=== PATIENT | male | born 1990 | race American Indian/Alaskan Native ===

== ENCOUNTER 2018-08-25 22:27 | Emergency (ER) | payer OTHER ==
[~2018-08-25] VITALS: Ht 182.9 cm; Wt 74.8 kg
[~2018-08-25 22:27] MED LIST: ALBU90OI INH; ANTIPSYCHOTIC; AZIT250 PO; CEPH500 PO; CODGUAEL PO; DIPH50 PO; DOXY100 PO; HYDACE5 PO; HYDGUAL120 PO; IBUP600 PO; NYSTRI30T TOP; OXYACE5T PO; PALI3TAB PO; PSEU120ER PO; SULTRIDS PO
[2018-08-25 22:50] LABS: Source, Urine Catheter
[2018-08-25 22:53] LABS: BASOPHILS ABSOLUTE AUTO 0.07 K/mm3 (0.00-0.23); BASOPHILS PERCENT AUTO 1 % (0-2); EOSINOPHILS ABSOLUTE AUTO 0.11 K/mm3 (0.00-0.68); EOSINOPHILS PERCENT AUTO 2 % (0-6); Hematocrit 50.7 % (37.0-53.0); Hemoglobin 16.2 g/dL (13.5-17.5); IMMATURE GRAN ABSOLUTE AUTO 0.21 K/mm3 (0.00-0.10); IMMATURE GRAN PERCENT AUTO 3 % (0-1); LYMPHOCYTES ABSOLUTE AUTO 1.64 K/mm3 (0.84-5.20); LYMPHOCYTES PERCENT AUTO 22 % (21-46); MONOCYTES ABSOLUTE AUTO 0.54 K/mm3 (0.16-1.47); MONOCYTES PERCENT AUTO 7 % (4-13); Mean Corpuscular HGB 29.9 pg (26.0-34.0); Mean Corpuscular Volume 94 fL (80-100); Mean Platelet Volume 10.6 fL (9.1-12.4); NEUTROPHILS ABSOLUTE AUTO 4.83 K/mm3 (1.96-9.15); NEUTROPHILS PERCENT AUTO 65 % (41-73); Platelet Count 279 K/mm3 (150-400); RDW Coefficient Variation 12.1 % (11.7-14.2); Red Blood Cell Count 5.41 M/mm3 (4.30-5.90)
[2018-08-25 22:57] LABS: Bilirubin, Urine Neg (Neg); Blood, Urine 3+ (Neg); Glucose Qualitative, Urine Neg (Neg); Ketones, Urine 1+ (Neg); Leukocyte Esterase, Urine 1+ (Neg); Nitrite, Urine Neg (Neg); Protein, Urine 3+ (Neg); Specific Gravity, Urine 1.025 (1.003-1.022); Urobilinogen, Urine 1+ (Normal)
[2018-08-25 22:58] LABS: Appearance, Urine Cloudy (Clear); Color, Urine Yellow (P-Yellow)
[2018-08-25 23:06] LABS: U Amphetamine Screen DETECTED; U Barbituate Screen Not Detected; U Benzodiazapine Screen Not Detected; U Buprenorphine Screen Not Detected; U Cannabinoids Screen DETECTED; U Cocaine Screen Not Detected; U Methadone Screen Not Detected; U Methamphetamine Screen DETECTED; U Opiates Screen Not Detected; U Oxycodone Screen Not Detected; U Phencyclidine Screen Not Detected; U Propoxyphene Screen Not Detected
[2018-08-25 23:07] LABS: Bacteria Few /hpf; Squamous Epithelial Cells Rare /hpf (Few)
[2018-08-25 23:08] LABS: Spermatozoa Many /hpf
[2018-08-25 23:10] LABS: International Normalized Ratio 1.05; Prothrombin Time Results 11.1 Sec (9.7-11.5)
[2018-08-25 23:12] LABS: Alanine Aminotransfer (ALT/SGP 47 U/L (12-78); Albumin, Blood 4.4 g/dL (3.4-5.0); Albumin/Globulin Ratio 1.2 (0.8-1.8); Alk Phos 78 U/L (50-136); Anion Gap 17 mmol/L (6-16); Aspartate Aminotrans (AST/SGOT 50 U/L (12-37); Bilirubin, Total 0.8 mg/dL (0.1-1.0); Blood Urea Nitrogen 24 mg/dL (8-24); Bun/Creatinine Ratio 13.4 (12.0-20.0); CO2, Blood 23 mmol/L (21-32); Calcium, Blood 9.8 mg/dL (8.5-10.1); Chloride, Blood 109 mmol/L (98-108); Creatine Kinase MB 11.2 ng/mL (0.0-3.6); Creatinine, Blood 1.79 mg/dL (0.60-1.20); Ethanol (Alcohol), Blood, Med <3 mg/dL; Globulin, Blood 3.6 g/dL (2.2-4.0); Glomerular Filtration Rate 36 (60-); Glucose, Blood 109 mg/dL (70-99); Magnesium, Blood 2.5 mg/dL (1.6-2.4); Potassium, Blood 4.4 mmol/L (3.5-5.5); Salicylate <1.7 mg/dL (2.8-20.0); Sodium, Blood 149 mmol/L (136-145); Troponin I 0.031 ng/mL (0.000-0.040)
[2018-08-25 23:26] LABS: CPK Creatine Kinase 1079 U/L (39-308)
[2018-08-25 23:30] LABS: Acetaminophen, Random <2.0 ug/mL (10.0-30.0)
== END 2018-08-26 02:04 ==
LOC: EDBD 22:27 → ER 22:27
PROVIDERS: Emergency Medicine
DX: I46.9 Cardiac arrest, cause unspecified (principal); F15.10 Other stimulant abuse, uncomplicated
CPT/HCPCS: 31500; 31720; 36415; 36680; 51702; 80053; 81001; 82550; 82553; 82947; 83735; 84145; 84484; 85025; 85610; 87086; 92950; 93005; 93010; 94002; 94770; 96374-59; 96375-59; 99291-25; G0480; J0171; J0282; J2310; J3475; J7030; J7060